=== PATIENT | female | born 2000 | race Caucasian/White ===

== ENCOUNTER 2025-04-19 09:15 | Emergency (ER) | payer OTHER, SELFPAY ==
--- OUTSIDE RECORDS SUMMARY | 2025-04-19 09:19 | XMS_ITS | Clinical Summary ---
Author Organization [facility] Address [address] [place] [address] Care Team Providers Care Facing End Trimmer Name Role Phone Addie Batista MD Primary Care Provider Source Comments [facility],non-owned Affiliates and Associated Physician Practices is amultiple site organization consisting of ambulatory clinics and hospital sitesin [place], [place], [place] and [place]. This disclosure is being madepursuant to the Care Everywhere program and may not contain all information available regarding this patient. Last updated 18.[facility] Copy[employer] Social History Tobacco Use Types Packs/Day Years Used Date Smoking Tobacco: Never Assessed Comments Unknown Sex and Gender Information Value Date Recorded Sex Assigned at Not on file Legal Sex Female 8:40 PM CDT Gender Identity Not on file Sexual Orientation Not on file Plan of Treatment Health Maintenance Due Date Last Done Comments HIV SCREENING 2017 HPV VACCINE (1 - 3-dose series) 2017 CHLAMYDIA/GONORRHEA SCREENING 2018 MENINGOCOCCAL (Group B) VACC INE SHARED DECISION-MAKING (1 of 2 - Standard) 2018 HEPATITIS C SCREENING 11/19/2020 DTAP/TDAP/TD VACCINES (1 - Tdap) 2021 HEPATITIS B VACCINE (1 of 3 - 19+ 3-dose series) 2021 COVID-19 VACCINE (1 - 2023-2 5 season) 2024 DEPRESSION SCREENING 08/21/2024 INFLUENZA VACCINE (#1) 2025 ZOSTER VACCINE (1 of 2) 2052 HIB VACCINE Aged Out No longer eligi ble based on patient's age to complete this topic MENINGOCOCCAL GROUPS A/C/Y/W VACCINE Aged Out No longer eligible b ased on patient's age to complete this topic PNEUMOCOCCAL VACCINE Aged Out No long er eligible based on patient's age to complete this topic Care Teams Facing End Trimmer Relationship Specialty Start Date End Date Addie Batista MD [address] [place] [address] [phone] PCP - General Pediatrics 05/09/14
[2025-04-19 09:33] VITALS: BP 118/66; PULSE 86; RESP 16; TEMP 36.2; O2SAT 100
--- NOTE | 2025-04-19 10:21 | ED_ITS ---
HPI - Skin/Abscess/Foreign Bdy General Chief complaint: Skin/Abscess/Foreign Body Stated complaint: ear swelling Time Seen by Provider: 04/19/25 09:18 Source: patient Mode of arrival: ambulatory Limitations: no limitations History of Present Illness HPI narrative: 24-year-old female presents to [facility] with complaints of pain, swelling and drainage surrounding bilateral ear piercings for the past 2 days. Patient reports that she had bilateral [place] and then noticed symptoms 2 days ago. Patient denies fever, body aches, chills, nausea vomiting or diarrhea. Patient has been applying ice and heat with little relief. Onset (ago): day(s) (2) Associated symptoms: denies other symptoms Related Data Allergies Allergy/AdvReac Type Severity Reaction Status Date / Time brigitte Allergy Mild Rash Verified 04/19/25 09:56 Review of Systems Constitutional: Constitutional: Denies fatigue, Denies fever(s) and Denies weakness ENT: Denies dizziness, Denies epistaxis and Denies nasal congestion Cardiovascular: Cardiovascular: Denies chest pain Respiratory: Respiratory: Denies cough, Denies dyspnea and Denies wheezing Integumentary/Breasts: Comments: Swelling, erythema and drainage surrounding bilateral ear piercings Neurologic: Denies dizziness, Denies syncope and Denies headache(s) PMFSH Comments At time of signature, I agree with nursing past medical, surgical, social and family history. There is no relevant family history pertinent to the presenting complaint. Exam Const: General: healthy appearing and no acute distress Nutritional Appearance: well nourished Orientation/consciousness: patient oriented x3 Limitations: no limitations HENMT: Head: normal to inspection Other: See skin assessment Eyes: Conjunctivae: conjunctivae normal Neck: Neck: normal visual inspection Resp: Effort & Inspection: normal respiratory effort and not labored Auscultation: clear to auscultation bilaterally, no crackles, no rales, no rhonchi and no wheezes Cardio: Rate: regular rate Rhythm: regular rhythm Heart sounds: no murmurs Skin: Other: erythema and swelling noted to bilateral ear lobes at site of bilateral 3rd ear piercings; earrings are imbedded in both right and left lobe, unable to visualize right earring Neuro: General: patient oriented x3 and moves all extremities Speech: normal speech Gait exam (Neuro): Normal gait present Psych: Affect: normal affect Attitude: cooperative Course Course Level of Care: Express Care Visit Vital Signs Vital signs: Vital Signs Temperature 36.2 C L 04/19/25 09:33 Pulse Rate 86 04/19/25 09:33 Respiratory Rate 16 04/19/25 09:33 Blood Pressure 118/66 04/19/25 09:33 Pulse Oximetry 100 04/19/25 09:33 Oxygen Delivery Room Air 04/19/25 09:33 Temperature 36.2 C L 04/19/25 09:33 Pulse Rate 86 04/19/25 09:33 Respiratory Rate 16 04/19/25 09:33 Blood Pressure 118/66 04/19/25 09:33 Pulse Oximetry 100 04/19/25 09:33 Oxygen Delivery Room Air 04/19/25 09:33 MDM - Skin/Abscess/Foreign Bdy MDM Narrative Medical decision making narrative: discussed with patient that earrings will likely need to be removed; patient reports that she would like to try oral antibiotics 1st. Patient understands importance of monitoring symptoms very closely and to follow up with primary care provider in 48 hours re-evaluate symptoms as well as to proceed to the emergency room if symptoms worsen. List of local ENTs provided to patient for follow-up Differential Diagnosis Differential diagnosis: Likely abscess of skin or subcutaneous tissue and urticaria Critical Care Time Critical Care Time Critical Care Time: No Discharge Plan Discharge Clinical Impression: Infected embedded earring Patient Disposition: Home Condition: Stable Instructions: Antibiotic Form Additional Instructions: cleanse area with mild soap and water use antibiotic ointment as prescribed Take oral antibiotic and Prednisone as prescribed follow-up with primary care provider or ENT in 48 hours re-evaluate symptoms Monitor symptoms closely and proceed to emergency room if symptoms worsen Patient Language: Kenyan Prescriptions: New cephalexin 500 mg capsule 500 mg PO Q12H 10 Days Qty: 20 0RF mupirocin [Centany] 2 % ointment 1 applic topical BID 7 Days Qty: 15 0RF prednisone 20 mg tablet 40 mg PO DAILY 5 Days Qty: 10 0RF Follow-up/Referrals: Fernando,Courtney Rainey APRN [Primary Care Provider, Unknown] Time of Disposition: 10:35
== END 2025-04-19 10:39 | disposition home or self-care (01) ==
PROVIDERS: Emergency Provider Nurse Practitioner Family; PCP Registered Nurse
DX: S01.342A Puncture wound with foreign body of left ear, initial encounter (principal); S01.341A Puncture wound with foreign body of right ear, initial encounter; L08.9 Local infection of the skin and subcutaneous tissue, unspecified; X58.XXXA Exposure to other specified factors, initial encounter
CPT/HCPCS: 99213; G0463